=== PATIENT | male | born 1960 | race Caucasian/White ===

== ENCOUNTER 2018-08-27 12:34 | Emergency (ER) | payer SELFPAY ==
[2018-08-27] MEDS: ACETAMINOPHEN 325 MG TAB PO (16:06)
== END 2018-08-27 17:47 | disposition home or self-care (01) ==
LOC: FTE 12:34
DX: M54.9 Dorsalgia, unspecified (principal); R07.81 Pleurodynia; M25.562 Pain in left knee; M79.641 Pain in right hand; M25.531 Pain in right wrist
CPT/HCPCS: 29125; 71045; 71100; 73110-RT; 73130-RT; 73562; 99284-25